=== PATIENT | male | born 1965 | race African-American/Black ===

== ENCOUNTER 2018-11-09 03:10 | Emergency (ER) | payer BC, OTHER ==
[~2018-11-09] VITALS: Ht 175.3 cm; Wt 92.5 kg
--- NOTE | 2018-11-09 03:24 | NUR ---
Pt walks into ER with c/o suicidal ideation with a plan to cut himself. States he has been feeling depressed x 2 days. Suicide precautions implemented. 1:1 sitter (security) at bedside.
[2018-11-09 03:43] LABS: EOSINOPHILS # (AUTO) 0.2 K/uL (0.0-0.7); EOSINOPHILS % (AUTO) 5.2 % (0.0-7.0); HEMOGLOBIN 12.1 g/dL (12.5-16.3); LYMPHOCYTES # (AUTO) 1.5 K/uL (20.0-40.0); LYMPHOCYTES % (AUTO) 45.1 % (20.5-51.5); MEAN CORPUSCULAR HEMOGLOBIN 26.8 uug (23.8-33.4); MEAN CORPUSCULAR HGB CONC 33 g/dL (32.5-36.3); MEAN CORPUSCULAR VOLUME 82.3 fL (73.0-96.2); MONOCYTES # (AUTO) 0.3 K/uL (2.0-10.0); MONOCYTES % (AUTO) 8.2 % (0.0-11.0); NEUTROPHILS # (AUTO) 1.3 K/uL (1.8-8.9); NEUTROPHILS % (AUTO) 40.5 % (38.5-71.5); PLATELET COUNT (AUTO) 181 K/uL (152-348); WHITE BLOOD COUNT (AUTO) 3.3 K/uL (3.6-10.2)
[2018-11-09 03:55] LABS: ALANINE AMINOTRANSFERASE 38 U/L (16-63); ALKALINE PHOSPHATASE 100 U/L (50-136); ASPARTATE AMINOTRANSFERASE 34 U/L (15-37); BILIRUBIN,DIRECT 0.1 mg/dL (0.0-0.2); BILIRUBIN,TOTAL 0.3 mg/dL (0.2-1.0); CARBON DIOXIDE 26 mmol/L (21-32); CHLORIDE 102 mmol/L (98-107); GLUCOSE 94 mg/dL (74-106); POTASSIUM 3.7 mmol/L (3.5-5.1); TOTAL PROTEIN, SERUM 7.6 g/dL (6.4-8.2); UREA NITROGEN, BLOOD 18 mg/dL (7-18)
[2018-11-09 04:02] LABS: ETHANOL < 3 MG/DL (0-0)
--- NOTE | 2018-11-09 04:30 | NUR ---
Pt is medically cleared by Dr. Kaufman.
--- NOTE | 2018-11-09 06:12 | NUR ---
Pt sleeping in bed. 1:1 sitter (ecurity) at bedside.
--- NOTE | 2018-11-09 06:32 | NUR ---
Paged [facility] ToddW, for psych evaluation. ETA 1 hour.
[2018-11-09] MEDS ORDERED: FLUO20CA36 PO (06:44)
[2018-11-09] MEDS ORDERED: BUSP10TA3 PO (06:44)
[2018-11-09] MEDS ORDERED: OLAN10TA3 PO (06:44)
[2018-11-09] MEDS ORDERED: TRAZ-214 PO (06:44)
--- NOTE | 2018-11-09 06:51 | NUR ---
Pt unable to provide urine at this time.
[2018-11-09 07:19] LABS: ALANINE AMINOTRANSFERASE 34 U/L (16-63); ALKALINE PHOSPHATASE 88 U/L (50-136); ASPARTATE AMINOTRANSFERASE 29 U/L (15-37); BILIRUBIN,DIRECT 0.2 mg/dL (0.0-0.2); BILIRUBIN,TOTAL 0.4 mg/dL (0.2-1.0); TOTAL PROTEIN, SERUM 6.9 g/dL (6.4-8.2)
--- NOTE | 2018-11-09 07:21 | NUR ---
Report given to day shift nurse.
[2018-11-09 07:24] LABS: ACETAMINOPHEN < 2.0 ug/mL (10-30)
[2018-11-09 07:42] LABS: ETHANOL < 3 MG/DL (0-0)
--- NOTE | 2018-11-09 08:45 | NUR ---
Patient still has not provided urine specimen since arrival to ER. Patient said,"I need my Flomax for my prostate. I am not trying to be difficult. It is hard for me to pee with my big prostate. I dribble." notified.
[2018-11-09] MEDS: TAMSULOSIN HCL 0.4 MG CAP.SR.24H PO ONE (08:51)
[2018-11-09] MEDS ORDERED: TAMSULOSIN HCL 0.4 MG CAP.SR.24H ONE (08:52)
--- NOTE | 2018-11-09 08:54 | NUR ---
Patient is eating breakfast tray with good appetite, still for placement. Patient may be going to [facility] per Óscar Viveros on voluntary basis & not on 5150 psych hold.
[2018-11-09] MEDS ORDERED: LABETALOL HCL 100 MG/20 ML VIAL IV ONE (10:15)
--- NOTE | 2018-11-09 10:53 | NUR ---
Patient is resting comfortably in bed with eyes closed, pending callback from Dinorah (psych gospel worker).
--- NOTE | 2018-11-09 12:36 | NUR ---
Patient Tranfers to outside Facility: [email or web address] Physician: Barry Location: room 634-A RN: nurse Benitez accepted hands off report authorizing international sales representative: Dinorah & Calos Bliss
--- NOTE | 2018-11-09 13:21 | NUR ---
REPORT GIVEN AMBULANCE EMT UNIT 122. PATIENT LEFT IN NOT IN ANY DISTRESS
== END 2018-11-09 13:29 | disposition short-term general hospital (02) ==
LOC: ER 03:14
DX: Z04.6 Encounter for general psychiatric examination, requested by authority (principal); F32.9 Major depressive disorder, single episode, unspecified; F20.9 Schizophrenia, unspecified; F14.10 Cocaine abuse, uncomplicated; Z79.899 Other long term (current) drug therapy
CPT/HCPCS: 36415; 80048; 80076 ×2; 85025; 99285; G0480 ×3; G0481; A4663